=== PATIENT | male | born 1960 | race Caucasian/White ===

== ENCOUNTER 2020-12-15 15:49 | Outpatient (REF) | payer OTHER, SELFPAY ==
[2020-12-15 16:42] LABS: MANUAL DIFF FLAG NO
[2020-12-15 16:48] LABS: Basophils Absolute Auto 0.1 X10*3/uL (0.0-0.2); Basophils Percent Auto 0.9 % (0-2); Eosinophils Absolute Auto 0.3 X10*3/uL (0.0-0.4); Eosinophils Percent Auto 4.3 % (0-4); Hematocrit 45.9 % (42-52); Hemoglobin 15.8 g/dl (14.0-18.0); Imm Gran Abs Auto 0.02 X10*3/uL (0.00-0.03); Imm Gran Pct Auto 0.3 % (0.0-0.4); Lymphocytes Absolute Auto 1.3 X10*3/uL (1.2-4.9); Lymphocytes Percent Auto 18.7 % (20-40); Mean Corpuscular HGB Conc 34.4 g/dl (31.0-36.0); Mean Corpuscular Hemoglobin 28.6 pg (27.0-33.0); Mean Corpuscular Volume 83.2 fL (80-98); Monocytes Absolute Auto 0.6 X10*3/uL (0.1-1.2); Monocytes Percent Auto 8.2 % (2-11); Neutrophils Absolute Auto 4.5 X10*3/uL (2.0-8.3); Neutrophils Percent Auto 67.6 % (45-73); Platelet Count 237 X10*3/uL (160-400); Red Blood Count 5.52 X10*6/uL (4.60-5.80); Red Cell Distribution Width 12.4 % (11.0-16.0); White Blood Count 6.7 X10*3/uL (4.8-10.8)
[2020-12-15 17:18] LABS: Alanine Aminotransferase 45 U/L (0-40); Albumin Level 4.3 g/dL (3.5-5.0); Alkaline Phosphatase 103 U/L (39-117); Aspartate Amino Transferase 16 U/L (5-37); Bilirubin Direct 0.2 mg/dL (0.0-0.5); Bilirubin Total 0.3 mg/dL (0.0-1.0); Total Protein 7.3 g/dL (6.5-8.0)
== END 2020-12-15 15:50 | disposition home or self-care (01) ==
LOC: HO.LAB 15:49
PROVIDERS: Visit Provider Psychiatry & Neurology Neurology
DX: G35 Multiple sclerosis (principal)
CPT/HCPCS: 36415; 80076; 85025

== ENCOUNTER 2025-07-11 11:47 | Outpatient (REF) | payer OTHER, SELFPAY ==
--- NOTE | ~2025-07-11 | XR_ITS ---
EXAMINATION: XR KNEE 3 VIEWS LEFT HISTORY: M25.562 - Pain in left knee COMPARISON: There are no prior studies for comparison. FINDINGS: AP, lateral, and sunrise patellar views of the left knee are submitted. The patient is again noted to be status post left total knee arthroplasty. The orthopedic elements are in anatomic alignment. There is no radiographic evidence of loosening. There is no fracture or dislocation. There is lateral subluxation of the patella. There is a small joint effusion. The soft tissues are otherwise unremarkable. XR/XR knee LT 3V IMPRESSION: Status post left total knee arthroplasty. Lateral subluxation of the patella. Electronically signed by: William Urbano MD 07/11/2025 01:29 PM EDT
== END 2025-07-11 11:48 | disposition home or self-care (01) ==
LOC: HO.HOSX 11:47
PROVIDERS: PCP Internal Medicine; Visit Provider Physician Assistant
DX: M75.42 Impingement syndrome of left shoulder (principal); M25.562 Pain in left knee; M25.512 Pain in left shoulder; Z96.652 Presence of left artificial knee joint
CPT/HCPCS: 20610; 73562; J1010; J2003

== ENCOUNTER 2025-07-11 11:47 | Outpatient (AMB) | payer OTHER, SELFPAY ==
--- OUTSIDE RECORDS SUMMARY | 2024-09-03 13:54 | XMS_ITS | Encounter Summary ---
Author Organization [facility] Address [address] [place] [address] Care Team Providers Care Job Cost Estimator Name Role Phone Levi Underwood MD Primary Care Provider [phone] Encounter Details Date Type Department Care Team (Late st Contact Info) Description 09/03/2024 1:54 PM EDT Hospital Encounter TH HISTORIC ENCOUNTERS [facility] [place]NOTE 2] Sri Matamoros MD [address] [place] [id number] Social History Tobacco Use Types Packs/Day Years [...] Matamoros MD - 09/03/2024 2:00 PM EDT [facility] No chief complaint on [...] 40 minutes. The majority of the actual qlhb-nz-uuci visit was spent counseling the patient with respect to the current neurological picture. Sri Matamoros MD documented in this encounter Plan of Treatment Upcoming Encounters Date Type Department Care Team (Late st Contact Info) Description 09/25/2025 4:00 PM EDT Office Visit [facility] [place] [facility] [address] [place] [address] Sri Matamoros MD [address] [place] [address] documented as of this encounter Visit Diagnoses Not on filedocumented in this encounter Care Teams Job Cost Estimator Relationship Specialty Start Date End Date Levi Underwood MD PCP - General Internal Medicine 11/06/21 12/10/24 documented as of this encounter
--- NOTE | 2025-07-11 11:56 | MHC.OFFVIS ---
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 The patient states that he underwent left shoulder surgery approximately 8 years ago by another provider. He got fairly good relief from that surgery initially. He has had increased shoulder pain over the last year. He has had cortisone injections which gave him fairly good relief. He wishes to hold off on further surgery if at all possible. The patient does walk with 2 crutches because of multiple sclerosis which has cause weakness in his lower extremities. The patient did undergo left total knee replacement surgery approximately 10 years ago. The patient states that he fell onto his left knee approximately 3 years ago. Since that time he has noticed a ?bump? along the anterior aspect of his left knee. He states that his left knee discomfort is tolerable to him at this point. 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 Physical Exam Vital Signs: BMI result Body Mass Index 33.0 Const Other: Well-nourished well-developed very friendly male awake alert and oriented x3 in no acute distress Extrem Other: Left shoulder examination shows that the surgical incisions are well healed, no erythema, slightly decreased range of motion when compared to his right shoulder, 4+ out of 5 strength with supraspinatus testing, no instability Left knee examination shows that the surgical incision is well healed, full active extension and flexion to 110 degrees, 5/5 strength with quadriceps testing, his patella tracks well, there is a palpable/nonmobile protuberance along the medial aspect of his patella, no crepitus with range of motion, minimal discomfort with range of motion Office Procedures AMB Joint Injection/Aspiration Joint Injection/Aspiration Primary Site: left shoulder Prep: site was prepped using aseptic technique Injected: 40 mg of, DepoMedrol and 1% plain lidocaine Procedure: The patient tolerated the procedure well Coding - Large joint Procedure code (CPT) selection complete Results Reviewed Results Reviewed: X-rays of the patient's left knee taken today show a total knee arthroplasty with the femoral and tibial components in good position, no signs of loosening; there appears to be a chronic fracture of the patella with callus formation, no obvious loosening of the patellar component Assessment & Plan Assessment & Plan (1) Left knee pain: Code(s): M25.562 - Pain in left knee Category: Medical (2) Impingement syndrome of left shoulder: Code(s): M75.42 - Impingement syndrome of left shoulder Category: Medical (3) Left shoulder pain: Code(s): M25.512 - Pain in left shoulder Plan Mr. Bourgeois presents with left shoulder pain due to impingement syndrome. The risks and benefits of a left shoulder cortisone injection were discussed at length with the patient. The patient wished to proceed. He tolerated the injection well. Will continue with his home stretching program. The patient also has intermittent left knee discomfort due to a healed fracture of the medial aspect of his patella with no apparent loosening of the patellar component. I had a lengthy discussion with the patient regarding the treatment options. He wishes to hold off on revision surgery if at all possible. I agree with this plan. He will contact me prior to his follow-up appointment in 3 months should any questions or concerns arise. Feel free to call me at any time should questions regarding his orthopedic management arise. I spent 22 minutes in reviewing the patient's records and imaging studies, seeing the patient and documenting in the medical record. Orders: Orders XR knee LT 3V 07/11/25 M25.562 - Pain in left knee AMB Joint Injection/Aspiration 07/11/25 M75.42 - Impingement syndrome of left shoulder Coding Level of Care Code New Pt Level 3 (63741) Complex EM visit Add On G2211 Diagnoses Left knee pain M25.562 Impingement syndrome of left shoulder M75.42 Left shoulder pain M25.512 CPT Codes Coding - Large joint: 65472 - Large joint ([id number])
[2025-07-11 12:49] VITALS: BMI 33.0
--- OUTSIDE RECORDS SUMMARY | 2025-07-11 12:53 | XMS_ITS ---
Author Name [facility] Organization Unknown Care Team Organization Name Specialty Phone Email Start Date End Da te [facility] 06/07/2025 [facility] 11/15/2024 06/07/2025
--- OUTSIDE RECORDS SUMMARY | 2025-07-11 12:53 | XMS_ITS | Clinical Summary ---
Author Organization [facility] Address [address] [place] [address] Care Team Providers Care Probation Supervisor Name Role Phone Unavailable Primary Care Provider Unavailabl e Allergies No known active allergies Medications Medication Sig Dispensed Refills Start Date End Date Status lisinopril-hydroCHLOR Othiazide (PRINZIDE,ZESTORETIC) tablet 20-12.5 mg 1 tablet daily. 0 08/19/2021 Ac tive vitamin D3 (cholecalciferol) 25 MCG (1000 UT) tablet Take 1 tablet (25 mcg total) by mouth daily. 0 Active vitamin B-12 (CYANOCOBALAMIN) tablet 1000 mcg Take 1 tablet (1,000 mcg total) by mouth daily. 0 Active Kesimpta 20 MG/0.4ML SOAJ Inject 20 mg under the skin every 30 (thirty) days. 0.56 mL 5 06/25/2024 Active dalfampridine ER (AMPYRA) 10 MG 12 hr tablet Take 1 tablet (10 mg total) by mouth every 12 (twelve) hours. 60 tablet 5 07/25/2024 Active Active Problems Problem Noted Date Diagnosed Date Multiple sclerosis 06/04/2021 Femoral neuropathy of right lower extremity 06/2021 High blood pressure 04/20/2021 Family History Medical History Relation Name Comments Multiple sclerosis Neg Hx Social History Tobacco Use Types Packs/Day Years Used Date Smoking Tobacco: Never Smokeless Tobacco: Never Tobacco Cessation:Counseling Given: Not Answered Alcohol Use Standard Drinks/Week Comments No 0 (1 standard drink = 0.6 oz pur e alcohol) Sex and Gender Information Value Date Recorded Sex Assigned at Male 06/01/2022 1:52 PM EDT Gender Identity Not on file Sexual Orientation Not on file Job Start Date Occupation Industry Not on file Not on file Not on file Last Filed Vital Signs Vital Sign Reading Time Taken Comments Blood Pressure 120/79 09/03/2024 2:14 PM EDT Pulse 70 09/03/2024 2:14 PM EDT Temperature 36.1 C (97 F) 09/03/2024 2:14 PM EDT Respiratory Rate 16 08/17/2022 3:24 PM EDT Oxygen Saturation 96% 05/02/2024 3:35 PM EDT Inhaled Oxygen Concentration - - Weight 101.9 kg (224 lb 9.6 oz) 09/03/2024 2:14 PM EDT Height 177.8 cm (5' 10 ) 05/02/2024 3:35 PM EDT Body Mass Index 32.23 05/02/2024 3:35 PM EDT Plan of Treatment Health Maintenance Due Date Last Done Comments Hepatitis C Screening 1960 COVID-19 Vaccine (#1) 03/24/1960 Depression Screening 1971 BMI Counseling 1977 Preventative Health Evaluation 1977 Colon Cancer Screening (Colonoscopy) 2004 Shingrix-Zoster Vaccine (1 o f 2) 2009 Fall Risk Assessment 2024 Pneumococcal Vaccine (1 of 1 - PCV) 2024 Influenza Vaccine (#1) 2025 DTap / Tdap / Td (4 - Td or Tdap) 06/01/2031 06/01/2021, 12/05/2017, 12/28/2010 RSV Adult > 60+ Yrs or (1 - 1-dose 75+ series) 2034 Hepatitis B Vaccines Aged Out No long er eligible based on patient's age to complete this topic Pneumococcal Vaccine Aged Out No long er eligible based on patient's age to complete this topic RSV Ped < 20 months Aged Out No longe r eligible based on patient's age to complete this topic
== END 2025-07-11 13:09 | disposition home or self-care (01) ==
PROVIDERS: PCP Internal Medicine; Visit Provider Orthopaedic Surgery
DX: M25.562 Pain in left knee (principal); M75.42 Impingement syndrome of left shoulder; M25.512 Pain in left shoulder
CPT/HCPCS: 20610; 99203

== ENCOUNTER → 2025-07-11 12:28 | Outpatient (BNV) | payer OTHER, SELFPAY | PROVIDERS: PCP Internal Medicine; Visit Provider Radiology Diagnostic Radiology | DX: S83.012D Lateral subluxation of left patella, subsequent encounter (principal) | CPT/HCPCS: 73562 ==

== ENCOUNTER 2025-10-08 12:56 | Outpatient (REF) | payer MEDICARE, SELFPAY ==
--- OUTSIDE RECORDS SUMMARY | 2024-09-03 12:54 | XMS_ITS | Encounter Summary ---
Author Organization [facility] Address [address] [place] [address] Care Team Providers Care Buzzsaw Operator Name Role Phone Levi Underwood MD Primary Care Provider [phone] Encounter Details Date Type Department Care Team ([facility] st Contact Info) Description 09/03/2024 1:54 PM EDT Hospital Encounter TH HISTORIC ENCOUNTERS [facility] Sri Matamoros MD [address] [place] [id number] Social History Tobacco Use Types Packs/Day Years Used Date Smoking Tobacco: Never Smokeless Tobacco: Never Alcohol Use Standard Drinks/Week Comments No 2 (1 standard drink = 0.6 oz pur e alcohol) Sex and Gender Information Value Date Recorded Sex Assigned at Not on file Legal Sex Male 8:32 AM EST Gender Identity Not on file Sexual Orientation Not on file documented as of this encounter Last Filed Vital Signs Vital Sign Reading Time Taken Comments Blood Pressure 120/79 09/03/2024 2:14 PM EDT Sitting Left arm Pulse 70 09/03/2024 2:14 PM EDT Temperature - - Respiratory Rate - - Oxygen Saturation - - Inhaled Oxygen Concentration - - Weight 102 kg (224 lb 9.6 oz) 09/03/2024 2:14 PM EDT Height 177.8 cm (5' 10 ) 05/02/2024 3:3 5 PM EDT Body Mass Index 32.23 05/02/2024 3:35 PM EDT documented in this encounter Progress Notes * Sri Matamoros MD - 09/03/2024 2:00 PM EDT [facility] No chief complaint on file. HPI: Patient is a 63 y.o. year old male who presents for follow-up regarding ongoing management of multiple sclerosis. Disease Summary Date of onset/Initial symptom presentation:??June 2019 falling??/gait imbalance Date of diagnosis of MS: Disease course at onset:??PPMS Current disease course:??PPMS Last MS exacerbation: Previous disease therapies(reason for switch):??N/A:Ocrevus?October 2019.?? Current disease therapy: KESIMPTA Most recent MRI Brain:??04/2021 (stable comp to 2019) Most recent MRI Cervical spine:??04/2021 (stable comp to 2020) Most recent MRI Thoracic spine: CSF:??reported consistent with??MS JCV serology result and date:??JCV not performed?? MS mimickers:?? 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 He saw urology and he was started on a medication on daily basis that is helping patient cannot recall the medication name he will call us back with He denies any recent illness/infection Discussed with the patient and reviewed MRI results from September 2023 Patient was handed labs to be done last visit for acute symptoms Last visit History: Patient returns for follow-up visit. He continues Kesimpta for disease modifying therapy. He went to a urgent care about 1 month ago because mobility was worsening.He states that his legs were giving out and he would fall. He was prescribed a prednisone taper and he just finished this a few days ago. He states that with prednisone his walking improved and since running out of prednsioneis is worsening again. He is using 2 canes when he walks but had to use a WC to come into the office today from his car. He is requesting a refill of prednisone. He continues self injecting Kesimpta without difficulty/adverse effects Review of Systems Constitutional: Positive for fatigue. Musculoskeletal: Positive for gait problem. All other systems reviewed and are negative. Patient Active Problem List Diagnosis SNOMED CT(R) ??? High blood pressure HYPERTENSIVE DISORDER ??? Multiple sclerosis (HCC) MULTIPLE SCLEROSIS ??? 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 dalfampridine ER (AMPYRA) 10 MG 12 hr tablet, Take 1 tablet (10 mg total) by mouth every 12 (twelve) hours., Disp: 60 tablet, Rfl: 5 ??? Kesimpta 20 MG/0.4ML SOAJ, Inject 20 mg under the skin every 30 (thirty) days., Disp: 0.56 mL, Rfl: 5 ??? lisinopril-hydroCHLOROthiazide (PRINZIDE,ZESTORETIC) tablet 20-12.5 mg, 1 tablet daily., Disp: , Rfl: ??? vitamin B-12 (CYANOCOBALAMIN) tablet 1000 mcg, Take 1 tablet (1,000 mcg total) by mouth daily.,Disp: , Rfl: ??? vitamin D3 (cholecalciferol) 25 MCG (1000 UT) tablet, Take 1 tablet (25 mcg total) by mouth daily., Disp: , Rfl: Neuro Exam BP 120/79 (BP Location: Left arm, Patient Position: Sitting) Pulse 70 Temp 97 ??F (36.1 ??C) (Temporal) There is no height or weight on file to calculate BMI. General: A&Ox3 Cranial Nerves: PERRL, left XAVIER, facial strength symmetric, no facial droop, tongue protrusion midline, , shoulder shrug symmetric Motor: strength 5/5 bilateral UE , LE hip flexion 5-/5 bilaterally Sensory: temperature, light touch, and vibratory sense intact throughout Reflexes: 2+/4+ bilateral biceps, 2+/4+ bilateral patellar. Cerebellar: FTN without dysmetria or ataxia bilaterally, decreased foot tapping, no dysdiadochokinesia unable to evaluate Romberg's or tandem gait patient in a wheelchair Gait:??Patient walked using 2 canes while he did gait A/P: Multiple Sclerosis: ?? Kj Bourgeois is a 63-year-old male with multiple sclerosis treated with Kesimpta for disease modifying therapy. Patient has been clinically and radiologically stable still having trouble with ambulation was supposed to start home health OT PT he was discharged due to noncompliance prolonged discussion with the patient about the utility of physical therapy he will reach out to care tenders tryto reschedule the meantime he is still think Ampyra still helping him Prolonged discussions about fall precautions with the patient A. Disease modifying therapy and diagnostic plan: -Continue Kesimpta - order provided to check CBC, LFTs, immunoglobulins ordered today -MRI brain and cervical spine with and without contrast will be performed on an annual basis to assess radiologic stability ?? B. ??Symptomatic therapy plan: ?? Gait impairment: Order entered for home physical therapy last visit patient was discharged to call them back to try to reschedule continue Ampyra Urinary symptoms: Continue follow-up with urology patient to call us with been made the patient name he has been started on Patient was encouraged to call the office with any questions or concerns. Follow up in 4 months or sooner PRN The patient and I discussed the clinical picture during today's appointment. Additional time was spent prior to the actual appointment reviewing records, lab values and imaging results and preparing documentation for today's visit. There was also time spent following the in person visit documenting, arranging for further diagnostic testing and follow-up appointments. The entire time spent in thisprocess was greater than 40 minutes. The majority of the actual onvz-tt-[id number] visit was spent counseling the patient with respect to the current neurological picture. Sri Matamoros MD documented in this encounter Plan of Treatment Upcoming Encounters Date Type Department Care Team (Late st Contact Info) Description 12/19/2025 3:00 PM EST Office Visit [facility] [address] [place] [address] Kelin Rincon PA [address] [place] [address] documented as of this encounter Visit Diagnoses Not on filedocumented in this encounter Care Teams Buzzsaw Operator Relationship Specialty Start Date End Date Levi Underwood MD PCP - General Internal Medicine 11/06/21 12/10/24 documented as of this encounter
--- OUTSIDE RECORDS SUMMARY | 2025-10-10 16:05 | XMS_ITS | Clinical Summary ---
Author Organization [facility] Address [address] [place] [address] Phone Care Team Providers Care Nurses Supervisor Name Role Phone Levi Underwood MD Primary Care Provider [phone] Allergies No known active allergies Medications lisinopril-hydr oCHLOROthiazide (PRINZIDE,ZESTO RETIC) 20-12.5 mg per tablet 1 tablet daily. 1 Active cyanocobalamin (VITAMIN B-12) 1,000 mcg tablet Take 1 tablet (1,000 mcg total) by mouth daily. Active cholecalciferol (VITAMIN D-3) 25 mcg (1,000 unit) tablet Take 1 tablet (25 mcg total) by mouth daily. Active Kesimpta Pen 20 mg/0.4 mL pen injector injectionIndica tions:Multiple sclerosis Inject 0.4 mL (20 mg total) under the skin every 30 (thirty) days. 0.4 mL 5 09/24/2025 1:04 PM EDT 5 Active dalfampridine 10 mg tablet extended release 12 hrIndications:M ultiple sclerosis Take one tablet (10 mg) by mouth every 12 (twelve) hours. 180 tablet 3 09/24/2025 1:04 PM EDT 5 Active hydroCHLOROthia zide 12.5 mg tablet Take 1 tablet (12.5 mg total) by mouth 1 (one) time each day. 5 Active tamsulosin (FLOMAX) 0.4 mg 24 hr capsule Take 1 capsule (0.4 mg total) by mouth 1 (one) time each day. 5 Active gabapentin (NEURONTIN) 300 mg capsule 1-2 pills at night 30 capsule 2 5 Active Kesimpta Pen 20 mg/0.4 mL pen injector injection Inject 1 pen (20 mg total) under the skin every 30 (thirty) days. 0.4 mL 5 11/29/2023 1:06 PM EST 3 09/16/20 25 Discontinu ed(Therapy completed) Kesimpta Pen 20 mg/0.4 mL pen injector injection Inject 20 mg under the skin every 30 (thirty) days. 0.56 mL 5 04/27/2024 4:30 PM EDT 3 09/16/20 25 Discontinu ed(Therapy completed) Kesimpta Pen 20 mg/0.4 mL pen injector injection Inject 1 pen (20mg) under the skin every 30 (thirty) days. 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 Darden JOINT REPLACEMENT PROCEDURE:JOINT REPLACEMENT OTHER SURGICAL HISTORY PROCEDURE:Shoulder Scraping, Left Medical History Medical History Date Comments Constipation 06/14/2017 DX:Constipation Erectile dysfunction 08/24/2018 DX:Erectile dysfunction HTN (hypertension) 08/24/2018 DX:HTN (hyper tension) Hyperlipidemia 11/03/2016 DX:Hyperlipidemi a Irritable bowel syndrome (IBS) 06/21/2017 D X:Irritable bowel syndrome (IBS) Left thyroid nodule 01/04/2018 DX:Left thyr oid nodule Needle exposure 07/20/2018 DX:Needle exposu re Vertigo 11/03/2016 DX:Vertigo Vitamin D deficiency 11/03/2016 DX:Vitamin D deficiency Multiple sclerosis DX:Multiple s clerosis (HCC); COMMENT: Neuro Dr. Puckett Hypertension DX:Hypertension Relapsing remitting multiple sclerosis DX:Relapsing remitting multiple sclerosis (HCC) Family History Medical History Relation Name Comments [...] on file Sexual Orientation Not on file Obstetrics History Last Filed Vital Signs Vital Sign Reading Time Taken Comments Blood Pressure 133/78 05/27/2025 3:24 PM EDT Pulse 72 05/27/2025 3:24 PM EDT Temperature 36.7 C (98.1 F) 05/27/2025 3:24 PM EDT Respiratory Rate - - Oxygen Saturation 93% 05/27/2025 3:24 PM EDT Inhaled Oxygen Concentration - - Weight 104 kg (230 lb) 05/27/2025 3:24 PM EDT Height 177.8 cm (5' 10 ) 05/27/2025 3:24 PM EDT Body Mass Index 33 05/27/2025 3:24 PM EDT Plan of Treatment Upcoming Encounters Date Type Department Care Team (Late st Contact Info) Description 12/19/2025 3:00 PM EST Office Visit [facility] [address] [facility] [address] [place] [address] Kelin Ricnon, GHANSHYAM [address] [place] [phone] Health Maintenance Due Date Last Done Comments Colorectal Cancer Screening: Colonoscopy 1960 Pneumococcal Vaccine: 50+ Years (1 of 1 - PCV) 2009 Zoster Vaccines (1 of 2) 2009 Abdominal Aortic Aneurysm (AAA) Screen 11/04/2022 Cholesterol Screening (Lipid Panel) 11/04/2022 Hepatitis C Screening 11/04/2022 Medicare Annual Wellness Visit 11/04/2022 Social Influencers of Health Screening 11/04/2022 Hypertension/CHF/CAD Annual BMP Blood Test 11/13/2022 Falls Risk Assessment 2024 Depression Screening 11/28/2024 COVID-19 Vaccine (1 - 2024-2 6 season) 2025 Influenza Vaccine (#1) 2025 DTaP,Tdap,and Td Vaccines (3 - Td or Tdap) 06/01/2031 06/01/2021, 12/28/2010 RSV Immunization Adult Patients (1 - 1-dose 75+ series) 2034 HIB Vaccines Aged Out No longer eligi ble based on patient's age to complete this topic HPV Vaccines Aged Out No longer eligi ble based on patient's age to complete this topic Hepatitis A Vaccines Aged Out No long er eligible based on patient's age to complete this topic Hepatitis B Vaccines Aged Out No long er eligible based on patient's age to complete this topic IPV Vaccines Aged Out No longer eligi ble based on patient's age to complete this topic MMR Vaccines Aged Out No longer eligi ble based on patient's age to complete this topic Meningococcal ACWY Vaccine Aged Out N o longer eligible based on patient's age to complete this topic Meningococcal B Vaccine Aged Out No l onger eligible based on patient's age to complete this topic RSV Immunization Patients Under 20 months Aged Out No longer eligible b ased on patient's age to complete this topic Varicella Vaccines Aged Out No longer eligible based on patient's age to complete this topic Procedures Procedure Name Priority Date/Time Associated Diagnosis Comments RHEUMATOID FACTOR Routine 09/16/2025 10: 55 AM EDT Multiple sclerosis BIBIANA IFA WITH TITER AND PATTERN Routine 09/16/2025 10:55 AM EDT Multiple sclerosis SJOGRENS ANTIBODIES, SSA AND SSB Routine 09/16/2025 10:55 AM EDT Multiple sclerosis SEDIMENTATION RATE Routine 09/16/2025 10 :55 AM EDT Multiple sclerosis from Last 3 Months Results * Sjogrens antibodies, SSA and SSB (09/16/2025 10:55 AM EDT) Sjogren's SS-A (Ro) Ab Quant 2 <20 units LAB CHEMISTRY METHOD 09/22/2025 10:12 AM EDT [facility] Sjogren's SS-A (Ro) Ab Negative Negative LAB CHEMISTRY METHOD 09/22/2025 10:12 AM EDT [facility] Sjogren's SS-B (La) Ab Quant 1 <20 units LAB CHEMISTRY METHOD 09/22/2025 10:12 AM EDT [facility] Sjogren's SS-B (La) Ab Negative Negative LAB CHEMISTRY METHOD 09/22/2025 10:12 AM EDT [facility] Blood Venous blood specimen / Unknown Venipuncture / Unknown 09/16/2025 10:55 AM EDT 09/16/2025 10:55 AM EDT Sri Matamoros MD LAB BLOOD ORDERABLES Fin al Result [facility] [address] [place] [address], * BIBIANA IFA with titer and pattern (09/16/2025 10:55 AM EDT) BIBIANA Negative Negative 09/17/2025 1:48 PM EDT [facility] Comment:BIBIANA performed by ind irect immunofluorescence (IFA) using HEp-2 substrate. Blood Venous blood specimen / Unknown Venipuncture / Unknown 09/16/2025 10:55 AM EDT 09/16/2025 10:55 AM EDT us Sri Matamoros MD LAB BLOOD ORDERABLES Fin al Result Performing Organization Address [facility] Co de Phone Number [facility] [address] [place] [address], [place] [phone] * (ABNORMAL) Sedimentation rate (09/16/2025 10:55 AM EDT) [facility] Sed Rate 38(H) 0 - 20 mm/hr LAB HEMETOLOGY METHOD 09/16/2025 2:21 PM EDT [facility] Blood Venous blood specimen / Unknown Venipuncture / Unknown 09/16/2025 10:55 AM EDT 09/16/2025 10:55 AM EDT us Sri Matamoros MD LAB BLOOD ORDERABLES Fin al Result Performing Organization Address [facility] de Phone Number [facility] [address] [place] [address], [place] [phone] * Rheumatoid factor (09/16/2025 10:55 AM EDT) [facility] Rheumatoid Factor <10.0 <15.0 I Unit/mL LAB CHEMISTRY METHOD 09/16/2025 5:40 PM EDT [facility] Blood Venous blood specimen / Unknown Venipuncture / Unknown 09/16/2025 10:55 AM EDT 09/16/2025 10:55 AM EDT us Sri Matamoros MD LAB BLOOD ORDERABLES Fin al Result Performing Organization Address [facility] Co de Phone Number [facility] [address] [place] [address], [place] [phone] from Last 3 Months Insurance [employer] MED[employer]AGE Care Teams Nurses Supervisor Relationship Specialty Start Date End Date Levi Underwood MD [address] [address] PCP - General Internal Medicine 12/11/24
--- OUTSIDE RECORDS SUMMARY | 2025-10-10 16:05 | XMS_ITS | Clinical Summary ---
Author Organization [facility] Address [address] [place] [address] Care Team Providers Care Bobbin Marker Name Role Phone Unavailable Primary Care Provider [...]
== END 2025-10-08 12:57 | disposition home or self-care (01) ==
LOC: HO.HOSX 12:56
PROVIDERS: Visit Provider Orthopaedic Surgery
DX: Z13.89 Encounter for screening for other disorder (principal)